=== PATIENT | male | born 1985 | race Caucasian/White ===

== ENCOUNTER 2018-07-28 19:17 | Inpatient (IN) | payer MEDICAID, OTHER ==
[2018-07-28] MEDS: SOD CHLORIDE 0.9% 1,000 ML IV ×3 (19:27→22:31)
[2018-07-28 19:40] LABS: ADD MAN DIFF? NO
[2018-07-28 19:57] LABS: WHITE BLOOD COUNT 14.5 10^3/ul (4.8-10.8)
[2018-07-28 19:57] LABS: BASOPHIL # 0.1 10^3/ul (0.0-0.1); BASOPHILS % 0.6 % (0.0-2.0); EOSINOPHILS # 0.4 10^3/ul (0.0-0.5); HEMATOCRIT 47.8 % (42.0-52.0); HEMOGLOBIN 16.7 g/dl (14.0-18.0); LYMPHOCYTES # 4.8 10^3/ul (0.8-2.9); LYMPHOCYTES % 32.9 % (15.0-51.0); MEAN CORPUSCULAR HEMOGLOBIN 30.9 pg (29.0-33.0); MEAN CORPUSCULAR HGB CONC 34.9 g/dl (32.0-37.0); MEAN CORPUSCULAR VOLUME 88.4 fl (82.0-101.0); MEAN PLATELET VOLUME 10.4 fl (7.4-10.4); MONOCYTE # 0.8 10^3/ul (0.3-0.9); MONOCYTES % 5.7 % (0.0-11.0); NEUTROPHIL # 8.3 10^3/ul (1.6-7.5); NEUTROPHILS % 57.5 % (39.0-77.0); PLATELET COUNT 328 10^3/UL (140-415); RED BLOOD COUNT 5.41 10^6/ul (4.70-6.10); RED CELL DISTRIBUTION WIDTH 11.4 % (11.5-14.5)
[2018-07-28 20:17] LABS: INR 0.92; PARTIAL THROMBOPLASTIN TIME 24.4 Sec (23.0-35.0); PROTIME 12.4 Sec (11.9-14.9)
[2018-07-28 20:22] LABS: ACETAMINOPHEN < 10.0 ug/ml (10.0-30.0); ALANINE AMINOTRANSFERASE 42 IU/L (13-69); ALBUMIN/GLOBULIN RATIO 1.38; ALKALINE PHOSPHATASE 116 IU/L (42-121); ANION GAP 16 (5-13); ASPARTATE AMINO TRANSFERASE 28 IU/L (15-46); BILIRUBIN,INDIRECT 0.6 mg/dl (0-1.1); BILIRUBIN,TOTAL 0.6 mg/dl (0.2-1.3); BLOOD UREA NITROGEN 9 mg/dl (7-20); CALCIUM 9.8 mg/dl (8.4-10.2); CARBON DIOXIDE 19 mmol/L (21-31); CHLORIDE 103 mmol/L (97-110); CREATININE 0.81 mg/dl (0.61-1.24); ETHANOL < 10.0 mg/dl; Estimated GFR > 60 mL/min (>60); GLUCOSE 176 mg/dl (70-220); LIPASE 97 U/L (23-300); POTASSIUM 3.1 mmol/L (3.5-5.1); SALICYLATE < 1.0 mg/dl (5.0-30.0); SODIUM 138 mmol/L (135-144); TOTAL PROTEIN 8.6 g/dl (6.1-8.1)
[2018-07-28 20:25] LABS: ADD UMIC YES; UR ASCORBIC ACID NEGATIVE (NEGATIVE); UR BILIRUBIN (Dip) NEGATIVE (NEGATIVE); UR BLOOD (Dip) 2+ mg/dL (NEGATIVE); UR CLARITY CLOUDY (CLEAR); UR COLOR YELLOW (YELLOW); UR GLUCOSE (Dip) NEGATIVE (NEGATIVE); UR KETONES (Dip) NEGATIVE (NEGATIVE); UR LEUKOCYTE ESTERASE (Dip) TRACE Leu/ul (NEGATIVE); UR MUCUS FEW /HPF (NONE SEEN); UR NITRITE (Dip) NEGATIVE (NEGATIVE); UR RBC 49 /HPF (0-5); UR SPECIFIC GRAVITY (Dip) 1.014 (1.003-1.030); UR SQUAMOUS EPITHELIAL CELL FEW /HPF (FEW); UR TOTAL PROTEIN (Dip) 1+ mg/dl (NEGATIVE); UR UROBILINOGEN (Dip) NEGATIVE (NEGATIVE); UR WBC 13 /HPF (0-5)
[2018-07-28 20:31] LABS: BARBITURATES Negative (NEGATIVE); BENZODIAZEPINES Negative (NEGATIVE); CANNABINOIDS Negative (NEGATIVE); COCAINE Negative (NEGATIVE); OPIATES Negative (NEGATIVE)
[2018-07-28 20:42] LABS: AMPHETAMINE/METHAMPHETAMINE POSITIVE (NEGATIVE)
[2018-07-28] MEDS: GABAPENTIN 100 MG CAP PO ×2 (21:17)
[2018-07-28] MEDS ORDERED: LORAZEPAM 2 MG INJ IV (21:30)
[2018-07-28] MEDS ORDERED: NACL 0.9% 3 ML SYG IV (21:30)
[2018-07-28] MEDS ORDERED: ONDANSETRON 4 MG INJ IV (21:30)
[2018-07-28 21:43] LABS: Allen Test ACCEPTAB; Arterial Base Excess -2.2 mmol/L (-3.0-3); Arterial COHb 0.6 % (0.0-3.0); Arterial HCO3 24.3 mmol/L (22.0-26.0); Arterial MetHb 0.4 % (0.0-1.5); Arterial Total Hemglobin 17.5 g/dl (12.0-18.0); Arterial pCO2 47.2 mmhg (35-45); MODE NASAL CANNULA; Site Left Radial
[2018-07-28 21:59] LABS: CREATINE KINASE 184 IU/L (23-200)
[2018-07-28] MEDS ORDERED: POTASSIUM CHLORIDE 30 MEQ in SOD CHLORIDE 0.9% 1,000 ML IV (22:00)
[2018-07-28 22:12] LABS: CK INDEX 0.6; CK-MB 1.08 ng/ml (0.0-2.4); TROPONIN-I < 0.012 ng/ml (0.000-0.120)
[2018-07-28 23:05] LABS: LACTIC ACID 2.8 mmol/L (0.5-2.0)
[2018-07-29] MEDS: LIDOCAINE/MYLANTA 40 ML BTL PO (00:20)
[2018-07-29] MEDS: MAGNESIUM SULFATE 1 GM/D5W 100 ML IVPB (00:20)
[2018-07-29] MEDS: POTASSIUM CHLORIDE 100 ML IVPB ×2 (00:23→02:41)
[2018-07-29 02:19] LABS: LACTIC ACID 1.7 mmol/L (0.5-2.0)
[2018-07-29 02:19] LABS: CREATINE KINASE 171 IU/L (23-200)
[2018-07-29 02:33] LABS: CK-MB 1.78 ng/ml (0.0-2.4); TROPONIN-I < 0.012 ng/ml (0.000-0.120)
[2018-07-29] MEDS: PANTOPRAZOLE 40 MG INJ IV ×3 (02:41→18:14)
[2018-07-29] MEDS: ACETAMINOPHEN 325 MG TAB PO (03:20)
[2018-07-29] MEDS: ONDANSETRON 4 MG INJ IV (05:52)
[2018-07-29 06:17] LABS: ADD MAN DIFF? NO
[2018-07-29 06:26] LABS: WHITE BLOOD COUNT 21.1 10^3/ul (4.8-10.8)
[2018-07-29 06:26] LABS: BASOPHILS % 0.1 % (0.0-2.0); HEMATOCRIT 49.5 % (42.0-52.0); HEMOGLOBIN 16.9 g/dl (14.0-18.0); LYMPHOCYTES # 0.9 10^3/ul (0.8-2.9); LYMPHOCYTES % 4.3 % (15.0-51.0); MEAN CORPUSCULAR HGB CONC 34.1 g/dl (32.0-37.0); MEAN CORPUSCULAR VOLUME 90.7 fl (82.0-101.0); MEAN PLATELET VOLUME 10.1 fl (7.4-10.4); MONOCYTE # 0.8 10^3/ul (0.3-0.9); MONOCYTES % 3.6 % (0.0-11.0); NEUTROPHIL # 19.3 10^3/ul (1.6-7.5); NEUTROPHILS % 91.3 % (39.0-77.0); PLATELET COUNT 307 10^3/UL (140-415); RED BLOOD COUNT 5.46 10^6/ul (4.70-6.10); RED CELL DISTRIBUTION WIDTH 11.6 % (11.5-14.5)
[2018-07-29 06:36] LABS: HEMOGLOBIN A1C 4.9 % (0-5.9)
[2018-07-29 06:44] LABS: ALANINE AMINOTRANSFERASE 27 IU/L (13-69); ALBUMIN 5.2 g/dl (3.3-4.9); ALBUMIN/GLOBULIN RATIO 1.79; ALKALINE PHOSPHATASE 112 IU/L (42-121); ANION GAP 12 (5-13); ASPARTATE AMINO TRANSFERASE 26 IU/L (15-46); BILIRUBIN,INDIRECT 0.3 mg/dl (0-1.1); BILIRUBIN,TOTAL 0.3 mg/dl (0.2-1.3); BLOOD UREA NITROGEN 10 mg/dl (7-20); CALCIUM 9.9 mg/dl (8.4-10.2); CARBON DIOXIDE 23 mmol/L (21-31); CHLORIDE 106 mmol/L (97-110); CHOLESTEROL 262 mg/dl (100-200); CREATININE 0.83 mg/dl (0.61-1.24); Estimated GFR > 60 mL/min (>60); GLUCOSE 127 mg/dl (70-220); HDL CHOLESTEROL 64 mg/dl (28-63); LDL CHOLESTEROL,CALCULATED 182 mg/dl; MAGNESIUM 2.5 mg/dl (1.7-2.5); SODIUM 141 mmol/L (135-144); TOTAL PROTEIN 8.1 g/dl (6.1-8.1); TRIGLYCERIDES 82 mg/dl (0-149)
[2018-07-29 07:11] LABS: THYROID STIMULATING HORMONE 0.498 MIU/L (0.465-4.680)
[2018-07-29] MEDS: SOD CHLORIDE 0.9% 1,000 ML IV ×2 (09:02→13:08)
[2018-07-29] MEDS: SUCRALFATE (100 MG/ML) 10ML CUP PO ×4 (10:48→21:19)
[2018-07-29] MEDS: IOHEXOL 14.3 MG(I)/ML (ADULT) BTL PO (13:59)
[2018-07-29] MEDS: SOD CHLORIDE 0.9% 100 ML (15:36)
[2018-07-29] MEDS: IOHEXOL 0 ML (15:36)
[2018-07-29] MEDS: IOHEXOL 300MG/ML 150 ML BTL (15:38)
[2018-07-29 17:45] LABS: ADD UMIC YES; UR ASCORBIC ACID NEGATIVE (NEGATIVE); UR BILIRUBIN (Dip) NEGATIVE (NEGATIVE); UR BLOOD (Dip) 2+ mg/dL (NEGATIVE); UR CLARITY CLEAR (CLEAR); UR COLOR YELLOW (YELLOW); UR GLUCOSE (Dip) 1+ mg/dL (NEGATIVE); UR KETONES (Dip) TRACE mg/dL (NEGATIVE); UR LEUKOCYTE ESTERASE (Dip) NEGATIVE Leu/ul (NEGATIVE); UR MUCUS FEW /HPF (NONE SEEN); UR NITRITE (Dip) NEGATIVE (NEGATIVE); UR RBC 58 /HPF (0-5); UR SPECIFIC GRAVITY (Dip) 1.029 (1.003-1.030); UR TOTAL PROTEIN (Dip) 1+ mg/dl (NEGATIVE); UR UROBILINOGEN (Dip) NEGATIVE (NEGATIVE); UR WBC 4 /HPF (0-5)
[2018-07-30] MEDS: PANTOPRAZOLE 40 MG INJ IV ×2 (05:30→17:39)
[2018-07-30] MEDS: SOD CHLORIDE 0.9% 1,000 ML IV ×3 (05:30→18:54)
[2018-07-30 05:54] LABS: ADD MAN DIFF? NO
[2018-07-30 05:56] LABS: BASOPHILS % 0.2 % (0.0-2.0); EOSINOPHILS # 0.2 10^3/ul (0.0-0.5); EOSINOPHILS % 1.1 % (0.0-7.0); HEMATOCRIT 44.2 % (42.0-52.0); LYMPHOCYTES # 2.4 10^3/ul (0.8-2.9); MEAN CORPUSCULAR HEMOGLOBIN 30.8 pg (29.0-33.0); MEAN CORPUSCULAR HGB CONC 33.9 g/dl (32.0-37.0); MEAN CORPUSCULAR VOLUME 90.8 fl (82.0-101.0); MEAN PLATELET VOLUME 10.3 fl (7.4-10.4); MONOCYTE # 0.8 10^3/ul (0.3-0.9); MONOCYTES % 5.6 % (0.0-11.0); NEUTROPHIL # 10.6 10^3/ul (1.6-7.5); NEUTROPHILS % 75.7 % (39.0-77.0); PLATELET COUNT 271 10^3/UL (140-415); RED BLOOD COUNT 4.87 10^6/ul (4.70-6.10); RED CELL DISTRIBUTION WIDTH 11.8 % (11.5-14.5)
[2018-07-30 06:32] LABS: ALANINE AMINOTRANSFERASE 28 IU/L (13-69); ALBUMIN 3.9 g/dl (3.3-4.9); ALBUMIN/GLOBULIN RATIO 1.77; ALKALINE PHOSPHATASE 80 IU/L (42-121); ANION GAP 10 (5-13); ASPARTATE AMINO TRANSFERASE 23 IU/L (15-46); BILIRUBIN,INDIRECT 0.7 mg/dl (0-1.1); BILIRUBIN,TOTAL 0.7 mg/dl (0.2-1.3); BLOOD UREA NITROGEN 10 mg/dl (7-20); CALCIUM 9.2 mg/dl (8.4-10.2); CARBON DIOXIDE 22 mmol/L (21-31); CHLORIDE 106 mmol/L (97-110); CREATININE 0.86 mg/dl (0.61-1.24); Estimated GFR > 60 mL/min (>60); GLUCOSE 103 mg/dl (70-220); MAGNESIUM 2.1 mg/dl (1.7-2.5); POTASSIUM 3.9 mmol/L (3.5-5.1); SODIUM 138 mmol/L (135-144); TOTAL PROTEIN 6.1 g/dl (6.1-8.1)
[2018-07-30] MEDS: SUCRALFATE (100 MG/ML) 10ML CUP PO ×4 (08:33→21:50)
[2018-07-30] MEDS: THIAMINE 100 MG TAB PO (10:26)
[2018-07-30] MEDS: ATORVASTATIN 10 MG TAB PO (21:50)
[2018-07-31] MEDS: morphine 2 MG INJ IV (03:03)
[2018-07-31] MEDS: SOD CHLORIDE 0.9% 1,000 ML IV ×5 (03:07→20:00)
[2018-07-31] MEDS: PANTOPRAZOLE 40 MG INJ IV ×2 (05:45→17:59)
[2018-07-31 06:21] LABS: ADD MAN DIFF? NO
[2018-07-31 06:24] LABS: BASOPHIL # 0.1 10^3/ul (0.0-0.1); BASOPHILS % 0.5 % (0.0-2.0); EOSINOPHILS # 0.2 10^3/ul (0.0-0.5); EOSINOPHILS % 2.4 % (0.0-7.0); HEMATOCRIT 37.7 % (42.0-52.0); HEMOGLOBIN 12.7 g/dl (14.0-18.0); LYMPHOCYTES # 2.9 10^3/ul (0.8-2.9); LYMPHOCYTES % 29.8 % (15.0-51.0); MEAN CORPUSCULAR HEMOGLOBIN 31.2 pg (29.0-33.0); MEAN CORPUSCULAR HGB CONC 33.7 g/dl (32.0-37.0); MEAN CORPUSCULAR VOLUME 92.6 fl (82.0-101.0); MEAN PLATELET VOLUME 10.5 fl (7.4-10.4); MONOCYTE # 0.8 10^3/ul (0.3-0.9); MONOCYTES % 7.7 % (0.0-11.0); NEUTROPHIL # 5.8 10^3/ul (1.6-7.5); NEUTROPHILS % 59.4 % (39.0-77.0); PLATELET COUNT 210 10^3/UL (140-415); RED BLOOD COUNT 4.07 10^6/ul (4.70-6.10); RED CELL DISTRIBUTION WIDTH 11.8 % (11.5-14.5)
[2018-07-31 06:24] LABS: WHITE BLOOD COUNT 9.7 10^3/ul (4.8-10.8)
[2018-07-31] MEDS: SUCRALFATE (100 MG/ML) 10ML CUP PO ×4 (08:41→20:10)
[2018-07-31] MEDS: THIAMINE 100 MG TAB PO ×2 (08:45→17:50)
[2018-07-31] MEDS: PROPOFOL 20 ML (15:53)
[2018-07-31] MEDS: ATORVASTATIN 10 MG TAB PO (20:10)
[2018-08-01] MEDS: ACETAMINOPHEN 325 MG TAB PO ×2 (00:10→11:26)
[2018-08-01] MEDS: SOD CHLORIDE 0.9% 1,000 ML IV ×4 (03:44→15:46)
[2018-08-01] MEDS: PANTOPRAZOLE 40 MG INJ IV ×2 (05:51→17:31)
[2018-08-01 07:54] LABS: ADD MAN DIFF? NO
[2018-08-01 07:58] LABS: BASOPHIL # 0.1 10^3/ul (0.0-0.1); BASOPHILS % 0.7 % (0.0-2.0); EOSINOPHILS # 0.2 10^3/ul (0.0-0.5); EOSINOPHILS % 2.3 % (0.0-7.0); HEMATOCRIT 39.4 % (42.0-52.0); HEMOGLOBIN 13.6 g/dl (14.0-18.0); LYMPHOCYTES # 2.3 10^3/ul (0.8-2.9); MEAN CORPUSCULAR HGB CONC 34.5 g/dl (32.0-37.0); MEAN CORPUSCULAR VOLUME 89.7 fl (82.0-101.0); MEAN PLATELET VOLUME 10.2 fl (7.4-10.4); MONOCYTE # 0.8 10^3/ul (0.3-0.9); MONOCYTES % 11.8 % (0.0-11.0); NEUTROPHIL # 3.6 10^3/ul (1.6-7.5); NEUTROPHILS % 51.9 % (39.0-77.0); PLATELET COUNT 200 10^3/UL (140-415); RED BLOOD COUNT 4.39 10^6/ul (4.70-6.10); RED CELL DISTRIBUTION WIDTH 11.5 % (11.5-14.5)
[2018-08-01 07:58] LABS: WHITE BLOOD COUNT 6.9 10^3/ul (4.8-10.8)
[2018-08-01] MEDS: THIAMINE 100 MG TAB PO (08:16)
[2018-08-01] MEDS: SUCRALFATE (100 MG/ML) 10ML CUP PO ×4 (08:17→20:37)
[2018-08-01 08:20] LABS: PHOSPHORUS 3.2 mg/dl (2.5-4.9)
[2018-08-01 08:20] LABS: ALANINE AMINOTRANSFERASE 36 IU/L (13-69); ALBUMIN 3.3 g/dl (3.3-4.9); ALBUMIN/GLOBULIN RATIO 1.37; ALKALINE PHOSPHATASE 87 IU/L (42-121); ANION GAP 6 (5-13); ASPARTATE AMINO TRANSFERASE 41 IU/L (15-46); BILIRUBIN,INDIRECT 0.2 mg/dl (0-1.1); BILIRUBIN,TOTAL 0.2 mg/dl (0.2-1.3); BLOOD UREA NITROGEN 9 mg/dl (7-20); CALCIUM 8.7 mg/dl (8.4-10.2); CARBON DIOXIDE 27 mmol/L (21-31); CHLORIDE 107 mmol/L (97-110); CREATININE 0.79 mg/dl (0.61-1.24); Estimated GFR > 60 mL/min (>60); GLUCOSE 93 mg/dl (70-220); MAGNESIUM 1.8 mg/dl (1.7-2.5); POTASSIUM 3.5 mmol/L (3.5-5.1); SODIUM 140 mmol/L (135-144); TOTAL PROTEIN 5.7 g/dl (6.1-8.1)
[2018-08-01] MEDS: ATORVASTATIN 10 MG TAB PO (20:37)
[2018-08-02] MEDS: SOD CHLORIDE 0.9% 1,000 ML IV ×2 (01:14→12:00)
[2018-08-02] MEDS: PANTOPRAZOLE 40 MG INJ IV (05:27)
[2018-08-02] MEDS: THIAMINE 100 MG TAB PO (08:10)
[2018-08-02] MEDS: SUCRALFATE (100 MG/ML) 10ML CUP PO ×3 (08:11→16:27)
[2018-08-02] MEDS ORDERED: PANTOPRAZOLE (EC) 40 MG TAB PO (18:00)
[2018-08-02] MEDS ORDERED: CLARITHROMYCIN 500 MG TAB PO (21:00)
[2018-08-02] MEDS ORDERED: AMOXICILLIN 500 MG CAP PO (21:00)
== END 2018-08-02 17:45 | DRG 917 ==
LOC: 5EC 07-30 17:56 → E/R 19:17 → TEL 21:21
PROC: 0DB68ZX Excision of Stomach, Via Natural or Artificial Opening Endoscopic, Diagnostic (ICD-10-PCS; principal; 2018-07-31 15:40)
PROC: 0DB78ZX Excision of Stomach, Pylorus, Via Natural or Artificial Opening Endoscopic, Diagnostic (ICD-10-PCS; 2018-07-31 15:40)
DX: T60.91XA Toxic effect of unspecified pesticide, accidental (unintentional), initial encounter (principal); G92 Toxic encephalopathy; E87.2 Acidosis; I82.611 Acute embolism and thrombosis of superficial veins of right upper extremity; K29.60 Other gastritis without bleeding; B96.81 Helicobacter pylori [H. pylori] as the cause of diseases classified elsewhere; D72.829 Elevated white blood cell count, unspecified; E78.5 Hyperlipidemia, unspecified; F10.10 Alcohol abuse, uncomplicated; F17.200 Nicotine dependence, unspecified, uncomplicated; R10.13 Epigastric pain; R82.5 Elevated urine levels of drugs, medicaments and biological substances; T14.91XA Suicide attempt, initial encounter
CPT/HCPCS: 36415; 36600; 70450; 71045; 74177; 80053; 80061; 80307; 81001; 82550; 82553; 82803; 83036; 83605; 83690; 83735; 84100; 84443; 84484; 85025; 85610; 85730; 87040; 87086; 88305; 88312; 90686; 93005; 93971; 97110; 97116; 97161; 97530; 99285-25